=== PATIENT | female | born 1960 | race African-American/Black ===

== ENCOUNTER → 2020-05-15 08:11 | Outpatient (BNVA) | payer SELFPAY | PROVIDERS: PCP Hospitalist; Visit Provider Dietitian, Registered ==

== ENCOUNTER 2020-05-21 07:40 | Outpatient (REF) | payer BC, SELFPAY ==
[2020-05-21 08:30] LABS: Basophils Percent Auto 0.8 % (0-2); Eosinophils Absolute Auto 0.1 X10*3/uL (0.0-0.4); Eosinophils Percent Auto 5.1 % (0-4); Hematocrit 35.2 % (37-47); Hemoglobin 11.5 g/dl (12.0-16.0); Lymphocytes Absolute Auto 1.1 X10*3/uL (1.2-4.9); Lymphocytes Percent Auto 46.6 % (20-40); MANUAL DIFF FLAG SCAN; Mean Corpuscular HGB Conc 32.7 g/dl (31.0-35.0); Mean Corpuscular Hemoglobin 30.6 pg (27.0-33.0); Mean Corpuscular Volume 93.6 fL (80-98); Mean Platelet Volume 9.4 fL (9.4-12.3); Monocytes Absolute Auto 0.3 X10*3/uL (0.1-1.2); Monocytes Percent Auto 13.6 % (2-11); Neutrophils Absolute Auto 0.8 X10*3/uL (2.0-8.3); Neutrophils Percent Auto 33.9 % (45-73); Platelet Count 243 X10*3/uL (160-400); Red Blood Count 3.76 X10*6/uL (4.20-5.50); Red Cell Distribution Width 14.5 % (11.0-16.0); SCAN SMEAR FLAG 1
[2020-05-21 08:32] LABS: Estimated Average Glucose 111 mg/dL; Hemoglobin A1c % 5.5 %
[2020-05-21 08:35] LABS: White Blood Count 2.4 X10*3/uL (4.8-10.8)
[2020-05-21 08:50] LABS: Alanine Aminotransferase 42 U/L (0-31); Alkaline Phosphatase 61 U/L (39-117); Anion Gap 10 (12-20); Aspartate Amino Transferase 33 U/L (5-31); Bilirubin Total 0.4 mg/dL (0.0-1.0); Blood Urea Nitrogen 23 mg/dL (9-16); C Reactive Protein 0.22 mg/dL (< or = 0.50); Calcium 9.2 mg/dL (8.4-10.2); Carbon Dioxide 30 mmol/L (22-29); Chloride 106 mmol/L (96-108); Cholesterol 192 mg/dL; Estimated Glomerular Filt Rate > 60; Glucose Random 96 mg/dL (60-115); HDL Cholesterol 74 mg/dL; LDL Cholesterol Calculated 110 mg/dl; Potassium 4.1 mmol/L (3.3-5.1); Sodium 142 mmol/L (135-145); Triglycerides 43 mg/dL
[2020-05-21 08:53] LABS: SLIDE REVIEW VERIFIED
[2020-05-21 09:15] LABS: Ferritin 237 ng/mL (10-250); TSH reflex Free T4 1.56 uIU/mL (0.32-4.0); Vitamin D 25-OH Total 46.4 ng/mL (>30)
[2020-05-21 09:30] LABS: Folate > 20.0 ng/mL (> or = 4.0); Vitamin B12 1337 pg/mL (200-900)
[2020-05-22 15:46] LABS: Calcium (PTHI) 9.9 mg/dL (8.6-10.4); PTHI 74 pg/mL (14-64)
[2020-05-22 18:31] LABS: Insulin Level Total 2.4 uIU/mL
[2020-05-24 07:31] LABS: Zinc 74 mcg/dL (60-130)
[2020-05-24 11:56] LABS: Vitamin B1 28 nmol/L (8-30)
[2020-05-27 18:53] LABS: Vitamin A 50 mcg/dL (38-98)
== END 2020-05-21 07:41 | disposition home or self-care (01) ==
LOC: HO.LAB 07:40
PROVIDERS: Visit Provider Physician Assistant
DX: Z98.0 Intestinal bypass and anastomosis status (principal)
CPT/HCPCS: 36415; 80053; 80061; 82306; 82607; 82728; 82746; 83036; 83525; 83970; 84425; 84443; 84590; 84630; 85025; 85060; 86140

== ENCOUNTER → 2020-06-06 08:07 | Outpatient (BNVA) | payer BC, SELFPAY | PROVIDERS: PCP Hospitalist; Visit Provider Dietitian, Registered ==

== ENCOUNTER → 2020-06-19 09:27 | Outpatient (BNVA) | payer BC, SELFPAY | PROVIDERS: Visit Provider Physician Assistant ==

== ENCOUNTER → 2020-07-24 08:11 | Outpatient (BNVA) | payer BC, SELFPAY | PROVIDERS: Visit Provider Physician Assistant ==

== ENCOUNTER → 2021-03-28 15:33 | Outpatient (BNVA) | payer BC, SELFPAY | PROVIDERS: PCP Hospitalist; Visit Provider Physician Assistant ==

== ENCOUNTER 2023-01-21 08:30 | Outpatient (REF) | payer BC, SELFPAY ==
[2023-01-21 09:28] LABS: MANUAL DIFF FLAG NO
[2023-01-21 09:58] LABS: Basophils Percent Auto 0.6 % (0-2); Eosinophils Absolute Auto 0.1 X10*3/uL (0.0-0.4); Eosinophils Percent Auto 2.7 % (0-4); Hematocrit 39.1 % (37.0-47.0); Hemoglobin 13.1 g/dl (12.0-16.0); Lymphocytes Absolute Auto 1.2 X10*3/uL (1.2-4.9); Lymphocytes Percent Auto 35.5 % (20-40); Mean Corpuscular HGB Conc 33.5 g/dl (31.0-35.0); Mean Corpuscular Hemoglobin 30.5 pg (27.0-33.0); Mean Corpuscular Volume 90.9 fL (80.0-98.0); Monocytes Absolute Auto 0.4 X10*3/uL (0.1-1.2); Neutrophils Absolute Auto 1.6 x10*3/uL (2.0-8.3); Neutrophils Percent Auto 48.2 % (45-73); Platelet Count 270 X10*3/uL (160-400); Red Cell Distribution Width 14.3 % (11.0-16.0); White Blood Count 3.3 X10*3/uL (4.8-10.8)
[2023-01-21 10:15] LABS: Estimated Average Glucose 114 mg/dL; Hemoglobin A1c % 5.6 % (<6.0)
[2023-01-21 10:44] LABS: Alanine Aminotransferase 22 U/L (0-31); Albumin Level 4.3 g/dL (3.5-5.0); Alkaline Phosphatase 74 U/L (39-117); Anion Gap 12 (12-20); Aspartate Amino Transferase 25 U/L (5-31); Bilirubin Total 0.5 mg/dL (0.0-1.0); Blood Urea Nitrogen 24 mg/dL (9-16); C Reactive Protein 0.25 mg/dL (< or = 0.50); Calcium 9.8 mg/dL (8.4-10.2); Carbon Dioxide 26 mmol/L (22-29); Chloride 106 mmol/L (96-108); Cholesterol 211 mg/dL (<200); Estimated Glomerular Filt Rate > 60; Glucose Random 96 mg/dL (60-115); HDL Cholesterol 69 mg/dL (>40); Iron 73 mcg/dL (30-160); LDL Cholesterol Calculated 134 mg/dL (<100); Percent Iron Saturation 28 % (15-50); Potassium 3.8 mmol/L (3.3-5.1); Sodium 140 mmol/L (135-145); Total Iron Binding Capacity 259 mcg/dL (228-428); Total Protein 7.8 g/dL (6.5-8.0); Triglycerides 43 mg/dL (<150); Unsaturated Iron Binding 186 ug/dL
[2023-01-21 11:02] LABS: Ferritin 341 ng/mL (10-250); Insulin 5 uU/mL (2-29); TSH reflex Free T4 1.35 uIU/mL (0.32-4.0); Vitamin D 25-OH Total 55.6 ng/mL (>30)
[2023-01-21 11:10] LABS: Folate 13.2 ng/mL (> or = 4.0); Vitamin B12 951 pg/mL (200-900)
[2023-01-25 12:18] LABS: Zinc 91 mcg/dL (60-130)
[2023-01-25 17:17] LABS: Calcium (PTHI) 9.9 mg/dL (8.6-10.4); PTHI 59 pg/mL (16-77)
[2023-01-27 03:48] LABS: Vitamin A 45 mcg/dL (38-98)
[2023-01-27 12:59] LABS: Vitamin B1 15 nmol/L (8-30)
== END 2023-01-21 08:31 | disposition home or self-care (01) ==
LOC: HO.LAB 08:30
PROVIDERS: PCP Hospitalist; Visit Provider Physician Assistant
DX: E66.9 Obesity, unspecified (principal); Z98.84 Bariatric surgery status; Z79.899 Other long term (current) drug therapy
CPT/HCPCS: 36415; 80053; 80061; 82306; 82607; 82728; 82746; 83036; 83525; 83540; 83970; 84425; 84443; 84590; 84630; 85025; 86140

== ENCOUNTER 2023-01-21 08:30 | Outpatient (AMB) | payer BC, SELFPAY ==
--- NOTE | 2023-01-21 08:33 | MHC.OFFVISWM ---
Intake VS Expanded 01/21/23 08:42 BP 123/79 Blood Pressure Location Lt brachial Blood Pressure Position Sitting Pulse 104 H Pulse Source Pulse Oximeter Temp 98.0 F Temperature Source Temporal Artery Scan Pulse Oximetry 96 Oxygen Delivery Method Room Air Height 4 ft 11 in Weight 177 lb 6.4 oz BMI 35.8 Body Fat % 36.3 Body Fat Mass 64.4 Fat Free Mass 112.8 Visceral Fat Rating 11.0 Body Water % 45.0 Body Water Mass 79.8 Muscle Mass/Score 107.2 Basal Metabolic Rate/Score 1,526 Intake Visit Reasons: (OV) POM GBP 09/19/2015 Allergies oxycodone Allergy (Unknown, Verified 01/21/23 08:38) dizziness codeine [CODEINE] Adverse Reaction (Intermediate, Verified 01/21/23 08:38) NAUSEA,DIZZINESS narcotics Allergy (Unknown, Uncoded 06/19/20 09:39) dizziness ANESTHESIA Adverse Reaction (Intermediate, Uncoded 06/19/20 09:39) LONG TIME WAKING NARCOTICS Adverse Reaction (Intermediate, Uncoded 06/19/20 09:39) NAUSEA,DIZZINESS Medication List - Last Reconciled 01/21/23 by Vira Chamberlain PA-C albuterol sulfate 90 mcg/actuation 2 puffs PO Q6H PRN calcium citrate 250 mg PO BID cholecalciferol (vitamin D3) 25 mcg PO DAILY ferrous fumarate-vitamin C 132-250 mg tabs PO mecobalamin (vitamin B12) 1,000 mcg sublingual DAILY multivitamin 1 tab PO DAILY thiamine HCl (vitamin B1) 50 mg PO DAILY HPI HPI Comments History of Present Illness Details 63 yo woman who is now 7+ years s/p GBP. Last seen Mar 2021 at 174 lbs. Last labs done May 2020. Lowest wegiht aobut 155, at her last appt we talked about ways she could try to lose the 20 lb weight gain. She retired and is not focusing on herself though. Wants to acheive a healthy weight and maintain it. Meal plan - needs about 70 grams protein per day Started this plan about 3 weeks - has lost 11 lbs. 10 am - 1 keto sandwich thin, 1 egg and 1 chicken sausage. Coffee black no sugar. 22 grams protein total 3 pm - salad with chicken breast 3-4 oz - uses 25 grams protein 7 pm- 4 oz chicken baked or turkey burger or shrimp with 2-4 ounces - 28 grams may have half a protein bar or light and fit yogurt Exercise - none, has gym membership. 4 d/week -- of ST and cardio. PFSH Surgical History Hx of colonoscopy Hx of bypass gastroenterostomy Hx laparoscopic cholecystectomy Family History Mother No problems noted. Father No problems noted. Brother A-fib Sister Hypertension Bladder cancer Social History Alcohol intake: never Patient Tobacco Use Status: Never used Tobacco Assessment & Plan Assessment & Plan (1) Obesity: Code(s): E66.9 - Obesity, unspecified Plan: 7+ years s/p GBP, no complications or complaints. She has started a very healthy meal plan with good results and will continue this. We discussed how she needs to start a regualr exercise routine for her health. Gym - start classes and cardio - ST 3 d/ week, goal of 2k ran burned per week. Will get labs done today. I encouraged her to send me texts every now and then with updates on her exericse and weight loss goals. Next appt 1 year with me. Patient is obese and is not considered stable at this time. I spent 30 minutes in total with patient reviewing/updating records, examining the patient and counseling the patient on weight management as detailed above. (2) S/P gastric bypass: Comment: 09/19/2015 Code(s): Z98.84 - Bariatric surgery status Orders: Orders Insulin Today E66.9 - Obesity, unspecified, Z98.84 - Bariatric surgery status Complete Blood Count Auto Diff Today E66.9 - Obesity, unspecified, Z98.84 - Bariatric surgery status Vitamin A Today E66.9 - Obesity, unspecified, Z98.84 - Bariatric surgery status Ferritin Today E66.9 - Obesity, unspecified, Z98.84 - Bariatric surgery status TSH reflex Free T4 Today E66.9 - Obesity, unspecified, Z98.84 - Bariatric surgery status Lipid Panel Today E66.9 - Obesity, unspecified, Z98.84 - Bariatric surgery status IRON PROFILE Today E66.9 - Obesity, unspecified, Z98.84 - Bariatric surgery status Vitamin B12 and Folate Today E66.9 - Obesity, unspecified, Z98.84 - Bariatric surgery status Zinc Today E66.9 - Obesity, unspecified, Z98.84 - Bariatric surgery status Comprehensive Met. Panel Today E66.9 - Obesity, unspecified, Z98.84 - Bariatric surgery status Vitamin B1 Today E66.9 - Obesity, unspecified, Z98.84 - Bariatric surgery status C Reactive Protein Today E66.9 - Obesity, unspecified, Z98.84 - Bariatric surgery status PTHI Today E66.9 - Obesity, unspecified, Z98.84 - Bariatric surgery status Vitamin D 25-OH Total Today E66.9 - Obesity, unspecified, Z98.84 - Bariatric surgery status Hemoglobin A1c Today E66.9 - Obesity, unspecified, Z98.84 - Bariatric surgery status Coding Level of Care Code Est Pt Level 4 (87719) Diagnoses Obesity E66.9 S/P gastric bypass Z98.84
[2023-01-21 08:42] VITALS: BP 123/79; PULSE 104; TEMP 36.7; O2SAT 96; BMI 35.8
== END 2023-01-21 09:08 | disposition home or self-care (01) ==
PROVIDERS: PCP Hospitalist; Visit Provider Physician Assistant
DX: E66.9 Obesity, unspecified (principal); Z68.35 Body mass index [BMI] 35.0-35.9, adult; Z90.3 Acquired absence of stomach [part of]; Z98.84 Bariatric surgery status
CPT/HCPCS: 99214